=== PATIENT | female | born 1980 | race Two or more races ===

== ENCOUNTER 2024-07-01 10:11 | Emergency (ER) | payer MEDICARE, MEDICAID, SELFPAY ==
[2024-07-01] VITALS (17 sets, daily range): BP systolic 163–212; BP diastolic 71–94; PULSE 76–132; RESP 15–24; TEMP 36.4–37.2; O2SAT 94–99; BMI 32.4
--- NOTE | 2024-07-01 10:46 | PD.EDRME ---
Rapid Medical Screening Exam RME Arrival date/time: 07/01/24 10:11 44-year-old female known chronic renal failure on dialysis here for possible blood transfusion and anemia. I have greeted and performed a focused initial assessment of this patient. Initial appropriate labs ordered at this time. A comprehensive ED assessment and evaluation of the patient and analysis of all test and completion of medical decision making process will be conducted by additional ED provider. Chief Complaint: General Adult/Misc Complain Time Seen by Provider: 07/01/24 10:27 Vital signs: Vital Signs Temperature 98.2 F 07/01/24 10:25 Pulse Rate 88 07/01/24 10:25 Respiratory Rate 18 07/01/24 10:25 Blood Pressure 165/75 H 07/01/24 10:25 Pulse Oximetry (%) 98 07/01/24 10:25 Oxygen Delivery Method Room Air 07/01/24 10:25
[2024-07-01 11:04] LABS: Basophils % (Auto) 0 % (0-2.5); Eosinophils # (Auto) 0.1 Thou/mm3 (0.0-0.5); Eosinophils % (Auto) 3 % (0-10); Hematocrit 23.4 % (36.0-46.0); Immature Granulocytes % (Auto) 1 % (0-0); Immature Granulocytes Auto 0.04 Thou/mm3 (0.00-0.00); Lymphocytes # (Auto) 1.2 Thou/mm3 (1.0-4.8); Lymphocytes % (Auto) 27 % (10-50); Mean Corpuscular HGB Conc 31.2 g/dl (31.0-37.0); Mean Corpuscular Hemoglobin 29.1 pg (25.0-35.0); Mean Corpuscular Volume 93 fL (80-100); Monocytes # (Auto) 0.5 Thou/mm3 (0.0-0.8); Monocytes % (Auto) 11 % (0-12); Neutrophils # (Auto) 2.7 Thou/mm3 (1.8-7.7); Neutrophils % (Auto) 58 % (37-80); Nucleated Red Blood Cell % 0 /100 WBC (0); Platelet Count 120 Thou/mm3 (140-440); RDW Standard Deviation 47.8 fL (36.4-46.3); Red Blood Count 2.51 Miln/mm3 (4.00-5.20); White Blood Count 4.6 Thou/mm3 (3.6-11.0)
[2024-07-01 11:08] LABS: Hemoglobin 7.3 g/dL (12.0-16.0)
[2024-07-01 11:24] LABS: Alanine Aminotransferase 17 U/L (10-49); Albumin, Serum 4.1 gm/dL (3.5-5.0); Albumin/Globulin Ratio 1.5 (1.2-2.2); Alkaline Phosphatase 114 U/L (46-116); Anion Gap 8 (7-16); Aspartate Amino Transferase 16 U/L (0-34); BUN/Creatinine Ratio 6 Ratio (12-20); Bilirubin,Total 0.4 mg/dL (0.3-1.2); Blood Urea Nitrogen 33 mg/dL (9-23); Calcium 9.8 mg/dL (8.3-10.6); Calcium (Corrected) 9.8 mg/dL (8.5-10.1); Carbon Dioxide 29.9 mMol/L (20.0-31.0); Chloride 101 mMol/L (98-107); Creatinine (Component) 5.4 mg/dL (0.6-1.3); Estimated Creatinine Clearance 14.1 mL/min (>60); Globulin 2.8 gm/dL (2.3-3.5); Glucose 120 mg/dL (74-106); Osmolality,Calculated 285 (275-295); Sodium 139 mMol/L (136-145); Total Protein 6.9 gm/dL (5.7-8.2); eGFR 9 See Note
--- NOTE | 2024-07-01 13:55 | PD.EDADULT ---
ED General RME/HPI General Chief complaint: General Adult/Misc Complain Stated complaint: SENT FROM DIALYSIS FOR TANSFUSION Time Seen by Provider: 07/01/24 10:27 Arrival date/time: 07/01/24 10:11 RME / HPI RME / HPI narrative: 44-year-old female patient with significant history of hypertension diabetes mellitus, end-stage renal disease, on hemodialysis dialysis, MWF, last dialysis yesterday, was advised to come to the emergency room by dialysis center for blood transfusion. Patient is denying any complaints. No vomiting blood no blood in the stool or changes in color of the stool. She had blood transfusion in the past. Related Data Home Medications ?Medication ?Instructions ?Recorded ?Confirmed insulin glargine 100 unit/mL (3 20 unit subcut BID ##9 05/01/17 11/25/22 mL) subcutaneous pen (Basaglar KwikPen U-100 Insulin) nifedipine 60 mg tablet,extended 60 mg PO QDAY ##30 05/01/17 11/25/22 release (Nifedipine ER) simvastatin 20 mg tablet 20 mg PO QDAY ##30 05/01/17 02/26/24 calcium acetate(phosphat bind) 667 2 tab PO TID 07/23/17 11/25/22 mg capsule escitalopram oxalate 10 mg tablet 10 mg PO QDAY 07/23/17 11/25/22 carvedilol 25 mg tablet 25 mg PO BID 02/26/24 02/26/24 gabapentin 300 mg capsule 300 mg PO TID 02/26/24 02/26/24 losartan 100 mg tablet 100 mg PO QDAY 02/26/24 02/26/24 omeprazole 40 mg capsule,delayed 40 mg PO QDAY 02/26/24 02/26/24 release semaglutide 2 mg/dose (8 mg/3 mL) 2 mg subcut QWEEK 02/26/24 02/26/24 subcutaneous pen injector (Ozempic) Previous Rx's ?Medication ?Instructions ?Recorded hydralazine 25 mg tablet 25 mg PO TID #90 tabs 11/26/22 metoclopramide HCl 10 mg tablet 10 mg PO Q6H PRN nausea and 01/22/24 (Reglan) vomiting #30 tabs Allergies Allergy/AdvReac Type Severity Reaction Status Date / Time No Known Allergies Allergy Verified 07/01/24 10:13 Review of Systems Review of Systems Narrative Review of Systems: Review of system reviewed and within normal limits except mentioned in HPI ED Exam Narrative Physical exam: VITAL SIGNS: Reviewed. GENERAL APPEARANCE: Alert and interactive, follows commands, no acute distress, HEAD AND FACE: Non-traumatic. ENT: PERRL, pale conjunctiva eyelid no trauma, Mucous membrane moist. NECK: Supple, nontender, no nuchal rigidity. CHEST: No tenderness, no crepitus, no paradoxical movement, no retractions. LUNGS: Clear, well ventilated, symmetric, no rales, no wheezing, no ronchi, no stridor, good breath sounds bilaterally. HEART: Regular rate, regular rhythm, no murmur, no gallops. ABDOMEN: Soft, positive bowel sounds, nondistended, no guarding, nontender, no rebound, no masses, RECTAL: Deferred. GENITAL: Deferred. NEUROLOGICAL: Gross motor function intact sensory function intact, Appropriate for age. MUSCULOSKELETAL: low back nontender, full range of motion. EXTREMITIES: Nontender, full range of motion. SKIN: Color pale, dry, no rash, no lacerations, no abrasions, no contusions. LYMPHATICS: Deferred. Course Quality Measures none Orders Category Date Time Status Transfuse,blood/blood products ONCE Care 07/01/24 12:01 Completed CBC Stat Lab 07/01/24 10:50 Completed Comprehensive Metabolic Panel Stat Lab 07/01/24 10:50 Completed Type and Screen Stat Lab 07/01/24 10:50 Completed prbc [Red Blood Cells] Stat Lab 07/01/24 10:50 Completed ALBUTEROL RT 0.5ml [Proventil Rt 0.5ml] Med 07/01/24 21:47 Discontinued 5 mg INH X1 ONE Diphenoxylate/Atrop Sulf [Lomotil] Med 07/01/24 16:24 Discontinued 2 tab PO X1 ONE Sod Polystyrene Sulfon Susp [Kayexalate Susp] Med 07/01/24 21:46 Discontinued 30 gm PO X1 ONE Sodium Chloride Rt Kathi 0.9% [NS Rt Kathi 0.9%] Med 07/01/24 21:47 Discontinued 3 ml INH PRN PRN carVEDILOL [Coreg] Med 07/01/24 13:53 Discontinued 25 mg PO X1 ONE hydrALAZINE HCL [Apresoline] Med 07/01/24 13:53 Discontinued 100 mg PO X1 ONE Vital Signs Vital signs: Vital Signs Temperature 98.2 F 07/01/24 10:25 Pulse Rate 88 07/01/24 10:25 Respiratory Rate 18 07/01/24 10:25 Blood Pressure 165/75 H 07/01/24 10:25 Pulse Oximetry (%) 98 07/01/24 10:25 Oxygen Delivery Method Room Air 07/01/24 10:25 [facility] Patient data External records reviewed:: None Clinical information provided by:: none Social determinants that could affect healthcare access:: none Patient has the following chronic illnesses:: ESRD How is presenting disease/condition affected by chronic disease/condition?: exacerbated by Evaluation data The following diagnostics were reviewed and interpreted by me:: lab results and radiology exam(s) Lab and/or radiology exams considered but not ordered:: None none Interpretation Summary: Patient's hemoglobin was noted to be 7.3, patient's potassium was noted to be 6.0 the rest of the labs is significant for chronic kidney disease. Medications Medications considered but not ordered:: None Medication administrations:: Medication Administration History Discontinued Medications Albuterol (Albuterol Rt 2.5 Mg/0.5 Ml Nebu) 5 mg INH X1 ONE Stop: 07/01/24 21:48 Last Admin: 07/01/24 22:19 Dose: 5 mg Documented By: SC Carvedilol (Carvedilol 12.5 Mg Tablet) 25 mg PO X1 ONE Stop: 07/01/24 13:54 Last Admin: 07/01/24 15:06 Dose: 25 mg Documented By: AA Diphenoxylate HCl/Atropine (Diphenoxylate/Atrop Sulf 1 Tab) 2 tab PO X1 ONE Stop: 07/01/24 16:25 Last Admin: 07/01/24 16:36 Dose: 2 tab Documented By: AA Hydralazine HCl (Hydralazine Hcl 25 Mg Tablet) 100 mg PO X1 ONE Stop: 07/01/24 13:54 Last Admin: 07/01/24 14:05 Dose: 100 mg Documented By: AA Sodium Chloride (Sodium Chloride Rt Kathi 0.9% 3 Ml Nebu) 3 ml INH PRN PRN PRN Reason: SOLN Stop: 07/31/24 21:46 Last Admin: 07/01/24 22:19 Dose: 3 ml Documented By: SC Sodium Polystyrene Sulfonate (Sod Polystyrene Sulfon Susp 15 Gm/60 Ml Btl) 30 gm PO X1 ONE Stop: 07/01/24 21:47 Last Admin: 07/01/24 22:47 Dose: 30 gm Documented By: AC Albuterol breathing treatment for hyper-K Kayexalate Coreg Lomotil and hydralazine none Consultations Consultation(s) initiated? (list below): No Diagnosis Differential Diagnosis ED Complaint MDM: Anemia chronic disease, iron deficiency anemia, ESRD on hemodialysis Most likely diagnosis given after review of the tests above:: Anemia of chronic disease Admission Indicated Admission indicated?: not indicated Explain why admission is indicated or not indicated:: Stable Admission Request Was there a request for admission?: No Disposition Plan Disposition Plan: Discharge Discharge Attestation Discharge Attestation: The patient and all family members were given an opportunity to ask questions and understood the discharge instructions. Discharge instructions specifically effects, indications for sooner follow up or return to the emergency department, and the expected course of current diagnosis. Patient condition: Stable Medical Decision Making MDM Narrative MDM Narrative: 44-year-old female patient with significant history of hypertension diabetes mellitus, end-stage renal disease, on hemodialysis dialysis, MWF, last dialysis yesterday, was advised to come to the emergency room by dialysis center for blood transfusion. Patient is denying any complaints. No vomiting blood no blood in the stool or changes in color of the stool. She had blood transfusion in the past. Patient's hemoglobin today was noted to be 7.3, hematocrit of 23.4, the rest of the labs unremarkable. Except for chronic kidney disease potassium is 6.0 Patient received Kayexalate in the emergency room. Patient was also given albuterol for hyperkalemia. Repeat potassium is not needed since patient will have hemodialysis early tomorrow. Differential Diagnosis Differential Diagnosis: Anemia chronic disease, iron deficiency anemia, ESRD on hemodialysis Lab Data 07/01/24 10:50 07/01/24 10:50 Labs: Lab Results 07/01/24 Range/Units 10:50 WBC 4.6 (3.6-11.0) Thou/mm3 RBC 2.51 L (4.00-5.20) Miln/mm3 Hgb 7.3 L (12.0-16.0) g/dL Hct 23.4 L (36.0-46.0) % MCV 93 (80-100) fL MCH 29.1 (25.0-35.0) pg MCHC 31.2 (31.0-37.0) g/dl RDW Std Deviation 47.8 H (36.4-46.3) fL Plt Count 120 L (140-440) Thou/mm3 Neut % (Auto) 58 (37-80) % Lymph % (Auto) 27 (10-50) % [place] % (Auto) 11 (0-12) % Eos % (Auto) 3 (0-10) % Baso % (Auto) 0 (0-2.5) % Neut # (Auto) 2.7 (1.8-7.7) Thou/mm3 Lymph # (Auto) 1.2 (1.0-4.8) Thou/mm3 [place] # (Auto) 0.5 (0.0-0.8) Thou/mm3 Eos # (Auto) 0.1 (0.0-0.5) Thou/mm3 Baso # (Auto) 0.0 (0.0-0.2) Thou/mm3 Immature Gran # (Auto) 0.04 H (0.00-0.00) Thou/mm3 Absolute Nucleated RBC 0.00 (0.00-0.00) Thou/mm3 Immature Gran % 1 H (0-0) % Nucleated RBC % 0 (0) /100 WBC Sodium 139 (136-145) mMol/L Potassium 6.0 H (3.4-5.1) mMol/L Chloride 101 (98-107) mMol/L Carbon Dioxide 29.9 (20.0-31.0) mMol/L Anion Gap 8 (7-16) BUN 33 H (9-23) mg/dL Creatinine 5.4 H* (0.6-1.3) mg/dL Estim Creat Clear Calc 14.1 L (>60) mL/min eGFR 9 L* (60 - ) See Note BUN/Creatinine Ratio 6 L (12-20) Ratio Glucose 120 H (74-106) mg/dL Calculated Osmolality 285 (275-295) Calcium 9.8 (8.3-10.6) mg/dL Corrected Calcium 9.8 (8.5-10.1) mg/dL Total Bilirubin 0.4 (0.3-1.2) mg/dL AST 16 (0-34) U/L ALT 17 (10-49) U/L Alkaline Phosphatase 114 (46-116) U/L Total Protein 6.9 (5.7-8.2) gm/dL Albumin 4.1 (3.5-5.0) gm/dL Globulin 2.8 (2.3-3.5) gm/dL Albumin/Globulin Ratio 1.5 (1.2-2.2) Blood Type B Positive Antibody Screen NEGATIVE Crossmatch See Detail Blood Bank Wristband ID Yes Discharge Plan Plan Patient Disposition: HOME (Self Care) Disposition Comment: stable Prescriptions/Referrals Prescriptions/Med Rec: No Action simvastatin 20 MG tablet 20 mg PO QDAY Qty: 30 nifedipine [Nifedipine ER] 60 MG tablet extended release 60 mg PO QDAY Qty: 30 insulin glargine [Basaglar KwikPen U-100 Insulin] 100 unit/mL (3 mL) Insulin Pen 20 unit SUB-Q BID Qty: 9 escitalopram oxalate 10 mg Tablet 10 mg PO QDAY calcium acetate(phosphat bind) 667 mg Capsule 2 tab PO TID hydralazine 25 mg Tablet 25 mg PO TID Qty: 90 0RF omeprazole 40 mg Capsule,Delayed Release(Dr/Ec) 40 mg PO QDAY carvedilol 25 mg Tablet 25 mg PO BID Rx Instructions: must administer with a meal/food gabapentin 300 mg Capsule 300 mg PO TID losartan 100 mg Tablet 100 mg PO QDAY Ozempic 2 mg/dose (8 mg/3 mL) Pen Injector 2 mg SUBCUT QWEEK metoclopramide HCl [Reglan] 10 mg tablet 10 mg PO Q6H PRN (Reason: nausea and vomiting) Qty: 30 0RF Referrals: Luis Wilkerson MD [Primary Care Provider] - In 1 week Problem List Clinical Impression: Anemia, Encounter for hemodialysis for ESRD Patient/Caregiver Discharge Instructions Discharge Activity: activity as tolerated Education Materials: Anemia Additional Instructions: Thank you for the opportunity for serving you today. You are stable for discharged . You are advised to: Follow-up with your PCP in 1 to 2 days Return to ED for worsening of symptoms Your received 2 units of packed RBC today. Print Language: Maori Stand Alone Forms: Peyton Award Info., Patient Portal Info Letter PA/BEHAVIORAL HEALTH SPECIALIST Supervising Physician [facility]/JANELLE Supervising Physician: MD Hadley
[2024-07-01] MEDS: hydrALAZINE HCL 25 MG TABLET 100 MG PO (14:05)
[2024-07-01] MEDS: carVEDILOL 12.5 MG TABLET 25 MG PO (15:06)
[2024-07-01] MEDS: DIPHENOXYLATE/ATROP SULF 1 TAB 2 TAB PO (16:36)
--- NOTE | 2024-07-01 19:15 | PC.NURSE ---
First contact with pt in Room 7, pt in gown, connected to bedside director custom, call light within reach.
[2024-07-01] MEDS: ALBUTEROL RT 2.5 MG/0.5 ML NEBU 5 MG INH (22:19)
[2024-07-01] MEDS: SODIUM CHLORIDE RT SOL 0.9% 3 ML NEBU INH (22:19)
[2024-07-01] MEDS: SOD POLYSTYRENE SULFON SUSP 15 GM/60 ML BTL 30 GM PO (22:47)
== END 2024-07-01 23:02 | disposition home or self-care (01) ==
PROVIDERS: Nurse Practitioner Primary Care; Emergency Provider Emergency Medicine; PCP Family Medicine
DX: I12.0 Hypertensive chronic kidney disease with stage 5 chronic kidney disease or end stage renal disease (principal); E11.22 Type 2 diabetes mellitus with diabetic chronic kidney disease; N18.6 End stage renal disease; D63.1 Anemia in chronic kidney disease; Z99.2 Dependence on renal dialysis; Z79.4 Long term (current) use of insulin; Z79.85 Long-term (current) use of injectable non-insulin antidiabetic drugs
CPT/HCPCS: 36415; 36430; 80053; 81001; 81025; 85025; 86850; 86900; 86901; 86923; 94640; 99285; P9016; A9270

== ENCOUNTER 2024-07-10 11:06 | Emergency (ER) | payer MEDICARE, MEDICAID, SELFPAY ==
[2024-07-10 11:07] VITALS: BMI 31.9
[2024-07-10 11:50] VITALS: BP 186/82; PULSE 81; RESP 18; TEMP 37.1; O2SAT 97; BMI 34.4
--- NOTE | 2024-07-10 11:57 | XR_ITS ---
Examination: PA chest single view Technique: Upright PA chest single view Exam date and time: July 10, 2024 1221 hrs. Comparison January 22, 2024 Indications: Chest pain shortness of breath beginning 3 days ago. Findings: Mild prominence cardiac contour Mild vascular congestion Early pneumonia left base obscuring detail left hemidiaphragm Mild osteopenia Impression: Early left base pneumonia
--- NOTE | 2024-07-10 11:59 | PD.EDURI ---
Upper Respiratory Inf. RME/HPI General Chief Complaint: Flu Like Symptoms Stated Complaint: COUGH, SORE THROAT, DIFF SWALLOWING, CONGESTION Time Seen by Provider: 07/10/24 11:37 Arrival date/time: 07/10/24 11:06 RME / HPI RME / HPI Narrative: 44-year-old female patient with significant history of hypertension, end-stage renal disease, diabetes mellitus, came in for evaluation regarding cough. Patient's been having worsening cough, sore throat, dysphagia, congestion, for the last few days. Patient missed her dialysis yesterday. Last hemodialysis was . Patient denies any fever denies any chest pain denies any abdominal pain denies any vomiting. No medication was taken prior travel. Denies any ill contacts. Related Data Home Medications ?Medication ?Instructions ?Recorded ?Confirmed insulin glargine 100 unit/mL (3 20 unit subcut BID ##9 05/01/17 11/25/22 mL) subcutaneous pen (Tk20aglar KwikPen U-100 Insulin) nifedipine 60 mg tablet,extended 60 mg PO QDAY ##30 05/01/17 11/25/22 release (Nifedipine ER) simvastatin 20 mg tablet 20 mg PO QDAY ##30 05/01/17 02/26/24 calcium acetate(phosphat bind) 667 2 tab PO TID 07/23/17 11/25/22 mg capsule escitalopram oxalate 10 mg tablet 10 mg PO QDAY 07/23/17 11/25/22 carvedilol 25 mg tablet 25 mg PO BID 02/26/24 02/26/24 gabapentin 300 mg capsule 300 mg PO TID 02/26/24 02/26/24 losartan 100 mg tablet 100 mg PO QDAY 02/26/24 02/26/24 omeprazole 40 mg capsule,delayed 40 mg PO QDAY 02/26/24 02/26/24 release semaglutide 2 mg/dose (8 mg/3 mL) 2 mg subcut QWEEK 02/26/24 02/26/24 subcutaneous pen injector (Ozempic) Previous Rx's ?Medication ?Instructions ?Recorded hydralazine 25 mg tablet 25 mg PO TID #90 tabs 11/26/22 metoclopramide HCl 10 mg tablet 10 mg PO Q6H PRN nausea and 01/22/24 (Reglan) vomiting #30 tabs amoxicillin 875 mg-potassium 1 tab PO BID #10 tabs 07/10/24 clavulanate 125 mg tablet azithromycin 250 mg tablet 250 mg PO QDAY 4 days #4 tabs 07/10/24 (Zithromax) promethazine-DM 6.25 mg-15 mg/5 mL 5 ml PO Q6H PRN cough #118 mL 07/10/24 oral syrup Allergies Allergy/AdvReac Type Severity Reaction Status Date / Time No Known Allergies Allergy Verified 07/10/24 11:09 Review of Systems Review of Systems Narrative Review of Systems: Review of system reviewed and within normal limits except mentioned in HPI ED Exam Narrative Physical exam: VITAL SIGNS: Reviewed. GENERAL APPEARANCE: Alert and interactive, follows commands, no acute distress, HEAD AND FACE: Non-traumatic. ENT: PERRL, pale conjunctiva, eyelid no trauma, Mucous membrane moist. NECK: Supple, nontender, no nuchal rigidity. CHEST: No tenderness, no crepitus, no paradoxical movement, no retractions. LUNGS: Clear, well ventilated, symmetric, no rales, no wheezing, no ronchi, no stridor, good breath sounds bilaterally. HEART: Regular rate, regular rhythm, no murmur, no gallops. ABDOMEN: Soft, positive bowel sounds, nondistended, no guarding, nontender, no rebound, no masses, RECTAL: Deferred. GENITAL: Deferred. NEUROLOGICAL: Gross motor function intact sensory function intact, Appropriate for age. MUSCULOSKELETAL: low back nontender, full range of motion. EXTREMITIES: Nontender, full range of motion. SKIN: Color pale, dry, no rash, no lacerations, no abrasions, no contusions. LYMPHATICS: Deferred. Course Quality Measures none Orders Category Date Time Status Bedside COVID-19 Antigen Test NOW Care 07/10/24 11:57 Active Bedside Influenza A&B Antigen Test NOW Care 07/10/24 11:58 Active XR chest 1V Stat Exams 07/10/24 11:57 Completed CBC [CBC] Stat Lab 07/10/24 12:37 Completed CMP [Comprehensive Metabolic Panel] Stat Lab 07/10/24 12:37 Completed RSV [Respiratory Syncytial Virus Ag] Stat Lab 07/10/24 11:58 Ordered Strep A Rapid Stat Lab 07/10/24 11:58 Ordered Amoxicillin/Pot Clav 875 [Augmentin 875] Med 07/10/24 16:28 Discontinued 1 tab PO X1 ONE Azithromycin Po [Zithromax PO] Med 07/10/24 16:32 Discontinued 500 mg PO X1 ONE Vital Signs Vital signs: Vital Signs Temperature 98.8 F 07/10/24 11:50 Pulse Rate 81 07/10/24 11:50 Respiratory Rate 18 07/10/24 11:50 Blood Pressure 186/82 H 07/10/24 11:50 Pulse Oximetry (%) 97 07/10/24 11:50 Oxygen Delivery Method Room Air 07/10/24 11:50 Upper Respiratory Infection [facility] Narrative [facility] Narrative:: 44-year-old female patient with significant history of hypertension, end-stage renal disease, diabetes mellitus, came in for evaluation regarding cough. Patient's been having worsening cough, sore throat, dysphagia, congestion, for the last few days. Patient missed her dialysis yesterday. Last hemodialysis was . Patient denies any fever denies any chest pain denies any abdominal pain denies any vomiting. No medication was taken prior travel. Denies any ill contacts. Chest x-ray showed beginning pneumonia otherwise unremarkable. The rest of the labs unremarkable. Except for chronic kidney disease, potassium today is normal Patient data External records reviewed:: [facility] previous records Clinical information provided by:: patient Social determinants that could affect healthcare access:: none Patient has the following chronic illnesses:: ESRD, on hemodialysis, diabetes mellitus hypertension How is presenting disease/condition affected by chronic disease/condition?: exacerbated by Evaluation data The following diagnostics were reviewed and interpreted by me:: lab results, radiology exam(s) and EKG tracing(s) Lab and/or radiology exams considered but not ordered:: None Interpretation Summary: See results in [facility] Medications / Prescriptions Medications or Prescriptions considered but not ordered:: None Medication administrations:: Medication Administration History Discontinued Medications Amoxicillin/Clavulanate Potassium (Amoxicillin/Pot Clav 875 Tablet) 1 tab PO X1 ONE Stop: 07/10/24 16:29 Azithromycin (Azithromycin 250 Mg Tablet) 500 mg PO X1 ONE Stop: 07/10/24 16:33 Zithromax, Augmentin Consultations Consultation(s) initiated? (list below): No Diagnosis Upper Respiratory Differential Diagnosis: upper respiratory infection, viral infection and other (Pneumonia) Most likely diagnosis given after review of the tests above:: Pneumonia Admission Indicated Admission indicated?: not indicated Explain why admission is indicated or not indicated:: None Admission Request Was there a request for admission?: No Disposition Plan Disposition Plan: Discharge Discharge Attestation Discharge Attestation: The patient was given an opportunity to ask questions and understood the discharge instructions. Discharge instructions specifically effects, indications for sooner follow up or return to the emergency department, and the expected course of current diagnosis. Patient condition: Stable Discharge Plan Plan Patient Disposition: HOME (Self Care) Disposition Comment: stable Prescriptions/Referrals Prescriptions/Med Rec: New azithromycin [Zithromax] 250 mg tablet 250 mg PO QDAY 4 Days Qty: 4 0RF Rx Instructions: start on day 2 of therapy amoxicillin-pot clavulanate 875-125 mg tablet 1 tab PO BID Qty: 10 0RF promethazine-DM 6.25-15 mg/5 mL syrup 5 ml PO Q6H PRN (Reason: cough) Qty: 118 0RF No Action simvastatin 20 MG tablet 20 mg PO QDAY Qty: 30 nifedipine [Nifedipine ER] 60 MG tablet extended release 60 mg PO QDAY Qty: 30 insulin glargine [Basaglar KwikPen U-100 Insulin] 100 unit/mL (3 mL) Insulin Pen 20 unit SUB-Q BID Qty: 9 escitalopram oxalate 10 mg Tablet 10 mg PO QDAY calcium acetate(phosphat bind) 667 mg Capsule 2 tab PO TID hydralazine 25 mg Tablet 25 mg PO TID Qty: 90 0RF omeprazole 40 mg Capsule,Delayed Release(Dr/Ec) 40 mg PO QDAY carvedilol 25 mg Tablet 25 mg PO BID Rx Instructions: must administer with a meal/food gabapentin 300 mg Capsule 300 mg PO TID losartan 100 mg Tablet 100 mg PO QDAY Ozempic 2 mg/dose (8 mg/3 mL) Pen Injector 2 mg SUBCUT QWEEK metoclopramide HCl [Reglan] 10 mg tablet 10 mg PO Q6H PRN (Reason: nausea and vomiting) Qty: 30 0RF Referrals: Luis Wilkerson MD [Primary Care Provider] - In 1 week Problem List Clinical Impression: Pneumonia Patient/Caregiver Discharge Instructions Discharge Activity: activity as tolerated Education Materials: What Is Pneumonia? Additional Instructions: Thank you for the opportunity for serving you today. You are stable for discharged . You are advised to: Follow-up with your PCP in 1 to 2 days Return to ED for worsening of symptoms Take medication as prescribed Print Language: Greenlandic Stand Alone Forms: Peyton Award Info., Patient Portal Info Letter PA/SECOND WATCH SERGEANT Supervising Physician [facility]ELLE Supervising Physician: MD Bernardino
[2024-07-10 12:55] LABS: Basophils % (Auto) 1 % (0-2.5); Eosinophils # (Auto) 0.1 Thou/mm3 (0.0-0.5); Eosinophils % (Auto) 3 % (0-10); Hematocrit 24.3 % (36.0-46.0); Immature Granulocytes % (Auto) 1 % (0-0); Immature Granulocytes Auto 0.04 Thou/mm3 (0.00-0.00); Lymphocytes # (Auto) 0.7 Thou/mm3 (1.0-4.8); Lymphocytes % (Auto) 17 % (10-50); Mean Corpuscular HGB Conc 33.3 g/dl (31.0-37.0); Mean Corpuscular Hemoglobin 28.9 pg (25.0-35.0); Mean Corpuscular Volume 87 fL (80-100); Monocytes # (Auto) 0.5 Thou/mm3 (0.0-0.8); Monocytes % (Auto) 14 % (0-12); Neutrophils # (Auto) 2.4 Thou/mm3 (1.8-7.7); Neutrophils % (Auto) 64 % (37-80); Nucleated Red Blood Cell % 0 /100 WBC (0); Platelet Count 114 Thou/mm3 (140-440); RDW Standard Deviation 62.7 fL (36.4-46.3); White Blood Count 3.8 Thou/mm3 (3.6-11.0)
[2024-07-10 13:23] LABS: Alanine Aminotransferase 21 U/L (10-49); Albumin, Serum 4.3 gm/dL (3.5-5.0); Albumin/Globulin Ratio 1.5 (1.2-2.2); Alkaline Phosphatase 92 U/L (46-116); Anion Gap 15 (7-16); Aspartate Amino Transferase 22 U/L (0-34); BUN/Creatinine Ratio 6 Ratio (12-20); Bilirubin,Total 0.3 mg/dL (0.3-1.2); Blood Urea Nitrogen 48 mg/dL (9-23); Calcium 8.2 mg/dL (8.3-10.6); Calcium (Corrected) 8.2 mg/dL (8.5-10.1); Carbon Dioxide 24.1 mMol/L (20.0-31.0); Chloride 97 mMol/L (98-107); Creatinine (Component) 7.7 mg/dL (0.6-1.3); Estimated Creatinine Clearance 11.3 mL/min (>60); Globulin 2.8 gm/dL (2.3-3.5); Glucose 79 mg/dL (74-106); Osmolality,Calculated 283 (275-295); Potassium 4.8 mMol/L (3.4-5.1); Sodium 136 mMol/L (136-145); Total Protein 7.1 gm/dL (5.7-8.2); eGFR 6 See Note
[2024-07-10 14:10] LABS: Hemoglobin 8.1 g/dL (12.0-16.0)
[2024-07-10 16:30] VITALS: BP 194/85; PULSE 84; RESP 18; TEMP 37.2; O2SAT 96
[2024-07-10] MEDS: AMOXICILLIN/POT CLAV 875 TABLET 1 TAB PO (16:48)
[2024-07-10] MEDS: AZITHROMYCIN 250 MG TABLET 500 MG PO (16:48)
== END 2024-07-10 17:00 | disposition home or self-care (01) ==
PROVIDERS: Nurse Practitioner Family; Emergency Provider Emergency Medicine; PCP Family Medicine
DX: J18.9 Pneumonia, unspecified organism (principal); I12.0 Hypertensive chronic kidney disease with stage 5 chronic kidney disease or end stage renal disease; N18.6 End stage renal disease; E11.22 Type 2 diabetes mellitus with diabetic chronic kidney disease; Z91.158 Patient's noncompliance with renal dialysis for other reason
CPT/HCPCS: 36415; 71045; 80053; 85025; 87634; 87651; 99283; A9270

== ENCOUNTER → 2024-08-10 | Outpatient (CLI) | payer MEDICARE, MEDICAID, SELFPAY ==
--- NOTE | 2024-08-10 10:30 | XR_ITS ---
Examination: Pelvic ultrasound, transabdominal, complete Technique: Transabdominal ultrasound of the pelvis performed using grayscale imaging Date and time of exam: August 10, 2024 1021 hrs. Indications: Diagnosis benign inflammatory disorder of uterus several months Findings: Uterus 5.1 x 2.9 x 5.9 cm No uterine mass Endometrial stripe 0.7 cm Right ovary 5.2 cm arterial flow 3.2 x 2.7 cm cyst Left ovarian cyst 3.6 cm arterial flow Impression: Negative for uterine mass Right ovarian simple cyst 3.2 x 2.3 x 3.7 cm.
== END | disposition home or self-care (01) ==
LOC: CDIM 10:01
PROVIDERS: PCP Internal Medicine; Referring Provider Internal Medicine; Visit Provider Internal Medicine
DX: N83.291 Other ovarian cyst, right side (principal)
CPT/HCPCS: 76856

== ENCOUNTER 2024-11-05 13:51 | Emergency (ER) | payer MEDICARE, MEDICAID, SELFPAY ==
[2024-11-05 13:52] VITALS: BMI 32.5
--- NOTE | 2024-11-05 13:56 | EKG_ITS ---
[facility] Test Date: 2024-11-05 Pat Name: MICKY WONG Department: Room: - Gender: Female Statistical Typist: : 1980 Requested By: ED Temporary Provider Order Number: [id number] Reading MD: ED Temporary Provider Measurements Intervals [place] Rate: 86 P: 22 NM: 257 QRS: 25 QRSD: 110 T: 75 QT: 432 QTc: 517 Interpretive Statements SINUS RHYTHM WITH FIRST DEGREE AV BLOCK MINIMAL ST DEPRESSION [0.025+ mV ST DEPRESSION] PROLONGED QT INTERVAL Compared to ECG 01/22/2024 10:38:11 ST (T wave) deviation now present Prolonged QT interval now present Ectopic atrial rhythm no longer present Myocardial infarct finding no longer present /store/S0/[id number]/ecg/[id number].pdf
[2024-11-05 14:04] VITALS: BP 132/70; PULSE 90; RESP 18; TEMP 37.2; O2SAT 99
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
== END 2024-11-05 16:02 | disposition home or self-care (01) ==
PROVIDERS: Emergency Provider Family Medicine
DX: S20.219A Contusion of unspecified front wall of thorax, initial encounter (principal); V89.9XXA Person injured in unspecified vehicle accident, initial encounter; I44.0 Atrioventricular block, first degree; I45.81 Long QT syndrome
CPT/HCPCS: 71046; 93005; 99283

== ENCOUNTER 2024-11-18 12:25 | Emergency (ER) | payer MEDICARE, MEDICAID, SELFPAY ==
[2024-11-18] VITALS (12 sets, daily range): BP systolic 132–208; BP diastolic 70–92; PULSE 76–84; RESP 16–18; TEMP 36.6–37.4; O2SAT 94–100; BMI 31.7
--- NOTE | 2024-11-18 13:02 | PD.EDRME ---
Rapid Medical Screening Exam RME Arrival date/time: 11/18/24 12:25 44-year-old female with a history of hypertension, type 2 diabetes on dialysis Wednesdays presents to the emergency room with a chief complaint of a low hemoglobin. Patient was sent over by dialysis center for hemoglobin of 6.2. I have greeted and performed a focused initial assessment of this patient. A comprehensive ED assessment and evaluation of the patient, analysis of all test results, and completion of the medical decision making process will be conducted by additional ED providers. Chief Complaint: General Adult/Misc Complain Time Seen by Provider: 11/18/24 12:42 Vital signs: Vital Signs Temperature 99.4 F 11/18/24 12:32 Pulse Rate 83 11/18/24 12:32 Respiratory Rate 16 11/18/24 12:32 Blood Pressure 133/74 H 11/18/24 12:32 Pulse Oximetry (%) 100 11/18/24 12:32 Oxygen Delivery Method Room Air 11/18/24 12:32 Vital signs reviewed by provider: Yes
[2024-11-18 13:40] LABS: Basophils # (Auto) 0.1 Thou/mm3 (0.0-0.2); Basophils % (Auto) 1 % (0-2.5); Eosinophils # (Auto) 0.2 Thou/mm3 (0.0-0.5); Eosinophils % (Auto) 4 % (0-10); Hematocrit 22.4 % (36.0-46.0); Immature Granulocytes % (Auto) 1 % (0-0); Immature Granulocytes Auto 0.04 Thou/mm3 (0.00-0.00); Lymphocytes # (Auto) 1.2 Thou/mm3 (1.0-4.8); Lymphocytes % (Auto) 29 % (10-50); Mean Corpuscular HGB Conc 33.5 g/dl (31.0-37.0); Mean Corpuscular Hemoglobin 30.1 pg (25.0-35.0); Mean Corpuscular Volume 90 fL (80-100); Monocytes # (Auto) 0.5 Thou/mm3 (0.0-0.8); Monocytes % (Auto) 11 % (0-12); Neutrophils # (Auto) 2.3 Thou/mm3 (1.8-7.7); Neutrophils % (Auto) 54 % (37-80); Nucleated Red Blood Cell % 0 /100 WBC (0); Platelet Count 128 Thou/mm3 (140-440); RDW Standard Deviation 47.1 fL (36.4-46.3); Red Blood Count 2.49 Miln/mm3 (4.00-5.20); White Blood Count 4.3 Thou/mm3 (3.6-11.0)
[2024-11-18 13:46] LABS: Partial Thromboplastin Time 25.5 Seconds (22.0-36.0); Prothrombin Time 11.4 Seconds (9.0-12.2)
[2024-11-18 13:53] LABS: Hemoglobin 7.5 g/dL (12.0-16.0)
[2024-11-18 14:00] LABS: Alanine Aminotransferase 9 U/L (10-49); Albumin/Globulin Ratio 1.6 (1.2-2.2); Alkaline Phosphatase 101 U/L (46-116); Anion Gap 17 (7-16); Aspartate Amino Transferase 18 U/L (0-34); BUN/Creatinine Ratio 4 Ratio (12-20); Bilirubin,Total 0.4 mg/dL (0.3-1.2); Blood Urea Nitrogen 33 mg/dL (9-23); Calcium 8.3 mg/dL (8.3-10.6); Calcium (Corrected) 8.3 mg/dL (8.5-10.1); Carbon Dioxide 27.5 mMol/L (20.0-31.0); Chloride 99 mMol/L (98-107); Creatinine (Component) 8.2 mg/dL (0.6-1.3); Estimated Creatinine Clearance 9.2 mL/min (>60); Globulin 2.5 gm/dL (2.3-3.5); Glucose 159 mg/dL (74-106); Osmolality,Calculated 295 (275-295); Potassium 4.2 mMol/L (3.4-5.1); Sodium 143 mMol/L (136-145); Total Protein 6.5 gm/dL (5.7-8.2); eGFR 6 See Note
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
--- NOTE | 2024-11-18 17:02 | EKG_ITS ---
[facility] Test Date: 2024-11-18 Pat Name: MICKY WONG Department: Room: - Gender: Female Switchman: : 1980 Requested By: Nishi Almeida Order Number: [id number] Reading MD: Nishi Almeida Measurements Intervals [place] Rate: 79 P: 44 RI: 244 QRS: 27 QRSD: 104 T: 76 QT: 434 QTc: 498 Interpretive Statements SINUS RHYTHM WITH FIRST DEGREE AV BLOCK Compared to ECG 11/05/2024 14:01:03 ST (T wave) deviation no longer present Prolonged QT interval no longer present /store/S0/[id number].pdf
[2024-11-18 17:52] LABS: Basophils # (Auto) 0.1 Thou/mm3 (0.0-0.2); Basophils % (Auto) 1 % (0-2.5); Eosinophils # (Auto) 0.2 Thou/mm3 (0.0-0.5); Eosinophils % (Auto) 3 % (0-10); Hematocrit 21.1 % (36.0-46.0); Immature Granulocytes % (Auto) 1 % (0-0); Immature Granulocytes Auto 0.03 Thou/mm3 (0.00-0.00); Lymphocytes # (Auto) 1.7 Thou/mm3 (1.0-4.8); Lymphocytes % (Auto) 35 % (10-50); Mean Corpuscular HGB Conc 34.1 g/dl (31.0-37.0); Mean Corpuscular Hemoglobin 30.4 pg (25.0-35.0); Mean Corpuscular Volume 89 fL (80-100); Monocytes # (Auto) 0.5 Thou/mm3 (0.0-0.8); Monocytes % (Auto) 11 % (0-12); Neutrophils # (Auto) 2.4 Thou/mm3 (1.8-7.7); Neutrophils % (Auto) 49 % (37-80); Nucleated Red Blood Cell % 0 /100 WBC (0); Platelet Count 128 Thou/mm3 (140-440); RDW Standard Deviation 46.4 fL (36.4-46.3); Red Blood Count 2.37 Miln/mm3 (4.00-5.20); White Blood Count 4.8 Thou/mm3 (3.6-11.0)
[2024-11-18] MEDS: ACETAMINOPHEN 325 MG TABLET 650 MG PO (17:53)
[2024-11-18] MEDS: DiphenhydrAMINE 25 MG CAPSULE PO (17:54)
[2024-11-18 18:01] LABS: Hemoglobin 7.2 g/dL (12.0-16.0)
[2024-11-18] MEDS: FUROSEMIDE INJ 10 MG/ML VIAL 2 ML 40 MG IVP (18:09)
[2024-11-18] MEDS: LOPERAMIDE 2 MG CAPSULE 4 MG PO (22:33)
[2024-11-18] MEDS: hydrALAZINE HCL 25 MG TABLET 100 MG PO (22:33)
[2024-11-18] MEDS: carVEDILOL 12.5 MG TABLET 25 MG PO (22:45)
[2024-11-18 23:27] LABS: Basophils # (Auto) 0.1 Thou/mm3 (0.0-0.2); Basophils % (Auto) 1 % (0-2.5); Eosinophils # (Auto) 0.2 Thou/mm3 (0.0-0.5); Eosinophils % (Auto) 3 % (0-10); Hematocrit 23.9 % (36.0-46.0); Immature Granulocytes % (Auto) 1 % (0-0); Immature Granulocytes Auto 0.03 Thou/mm3 (0.00-0.00); Lymphocytes # (Auto) 1.9 Thou/mm3 (1.0-4.8); Lymphocytes % (Auto) 37 % (10-50); Mean Corpuscular HGB Conc 33.9 g/dl (31.0-37.0); Mean Corpuscular Hemoglobin 29.9 pg (25.0-35.0); Mean Corpuscular Volume 88 fL (80-100); Monocytes # (Auto) 0.7 Thou/mm3 (0.0-0.8); Monocytes % (Auto) 13 % (0-12); Neutrophils # (Auto) 2.3 Thou/mm3 (1.8-7.7); Neutrophils % (Auto) 45 % (37-80); Nucleated Red Blood Cell # 0.02 Thou/mm3 (0.00-0.00); Nucleated Red Blood Cell % 0 /100 WBC (0); Platelet Count 116 Thou/mm3 (140-440); RDW Standard Deviation 48.1 fL (36.4-46.3); Red Blood Count 2.71 Miln/mm3 (4.00-5.20); White Blood Count 5.1 Thou/mm3 (3.6-11.0)
[2024-11-18 23:33] LABS: Hemoglobin 8.1 g/dL (12.0-16.0)
[2024-11-19 00:04] VITALS: BP 155/81; PULSE 76; RESP 16; O2SAT 100
[2024-11-19 00:47] VITALS: BP 155/81; PULSE 75; RESP 16; TEMP 36.8; O2SAT 97
== END 2024-11-19 00:50 | disposition home or self-care (01) ==
PROVIDERS: Nurse Practitioner Family; Physician Assistant; Emergency Provider Emergency Medicine; PCP Family Medicine
DX: I12.0 Hypertensive chronic kidney disease with stage 5 chronic kidney disease or end stage renal disease (principal); N18.6 End stage renal disease; E11.22 Type 2 diabetes mellitus with diabetic chronic kidney disease; D63.1 Anemia in chronic kidney disease; Z99.2 Dependence on renal dialysis
CPT/HCPCS: 36415; 36430; 80053; 85025; 85610; 85730; 86850; 86900; 86901; 86923; 93005; 96374; 99285; J1938; P9016; A9270

== ENCOUNTER 2025-04-04 14:10 | Emergency (ER) | payer MEDICARE, MEDICAID, SELFPAY ==
[2025-04-04 15:01] VITALS: BP 123/75; PULSE 71; RESP 18; TEMP 36.6; O2SAT 97
--- NOTE | 2025-04-04 15:14 | PD.EDRME ---
Rapid Medical Screening Exam RME Arrival date/time: 04/04/25 14:10 This is a case of 44-year-old female with history of ESRD on dialysis came in in the emergency room due to generalized tingling and and body pain after dialysis persistence of the symptoms this patient decided to start consulted in the emergency room Chief Complaint: General Adult/Misc Complain Time Seen by Provider: 04/04/25 14:22 Vital signs: Vital Signs Temperature 97.8 F 04/04/25 15:01 Pulse Rate 71 04/04/25 15:01 Respiratory Rate 18 04/04/25 15:01 Blood Pressure 123/75 04/04/25 15:01 Pulse Oximetry (%) 97 04/04/25 15:01 Oxygen Delivery Method Room Air 04/04/25 15:01
[2025-04-04 15:40] LABS: Basophils # (Auto) 0.1 Thou/mm3 (0.0-0.2); Basophils % (Auto) 1 % (0-2.5); Eosinophils # (Auto) 0.2 Thou/mm3 (0.0-0.5); Eosinophils % (Auto) 4 % (0-10); Hematocrit 34.4 % (36.0-46.0); Hemoglobin 11.5 g/dL (12.0-16.0); Immature Granulocytes Auto 0.02 Thou/mm3 (0.00-0.00); Lymphocytes # (Auto) 1.1 Thou/mm3 (1.0-4.8); Lymphocytes % (Auto) 24 % (10-50); Mean Corpuscular HGB Conc 33.4 g/dl (31.0-37.0); Mean Corpuscular Hemoglobin 31.4 pg (25.0-35.0); Mean Corpuscular Volume 94 fL (80-100); Monocytes # (Auto) 0.4 Thou/mm3 (0.0-0.8); Monocytes % (Auto) 10 % (0-12); Neutrophils # (Auto) 2.8 Thou/mm3 (1.8-7.7); Neutrophils % (Auto) 61 % (37-80); Nucleated Red Blood Cell # 0.00 Thou/mm3 (0.00-0.00); Nucleated Red Blood Cell % 0 /100 WBC (0); Platelet Count 108 Thou/mm3 (140-440); RDW Standard Deviation 49.6 fL (36.4-46.3); Red Blood Count 3.66 Miln/mm3 (4.00-5.20); White Blood Count 4.5 Thou/mm3 (3.6-11.0)
[2025-04-04 15:56] LABS: Alanine Aminotransferase 17 U/L (10-49); Albumin, Serum 4.1 gm/dL (3.5-5.0); Albumin/Globulin Ratio 1.6 (1.2-2.2); Alkaline Phosphatase 115 U/L (46-116); Anion Gap 13 (7-16); Aspartate Amino Transferase 22 U/L (0-34); BUN/Creatinine Ratio 4 Ratio (12-20); Bilirubin,Total 0.5 mg/dL (0.3-1.2); Blood Urea Nitrogen 27 mg/dL (9-23); Calcium 8.5 mg/dL (8.3-10.6); Calcium (Corrected) 8.5 mg/dL (8.5-10.1); Carbon Dioxide 31.1 mMol/L (20.0-31.0); Chloride 94 mMol/L (98-107); Creatinine (Component) 6.4 mg/dL (0.6-1.3); Globulin 2.5 gm/dL (2.3-3.5); Glucose 203 mg/dL (74-106); Magnesium 2.0 mg/dL (1.6-2.6); Osmolality,Calculated 286 (275-295); Potassium 3.7 mMol/L (3.4-5.1); Sodium 138 mMol/L (136-145); Total Protein 6.6 gm/dL (5.7-8.2); eGFR 8 See Note
--- NOTE | 2025-04-04 19:40 | PD.EDANX ---
ED Anxiety RME/HPI General Chief Complaint: General Adult/Misc Complain Stated Complaint: RESTLESSNESS S/P DIALYSIS Time Seen by Provider: 04/04/25 14:22 Arrival date/time: 04/04/25 14:10 RME / HPI RME / HPI narrative: 04/04/25 14:10 This is a case of 44-year-old female with history of ESRD on dialysis came in in the emergency room due to generalized tingling and and body pain after dialysis persistence of the symptoms this patient decided to start consulted in the emergency room See [facility] for Dr. Capps's HPI Documentation. Related Data Home Medications ?Medication ?Instructions ?Recorded ?Confirmed insulin glargine 100 unit/mL (3 20 unit subcut BID ##9 05/01/17 11/25/22 mL) subcutaneous pen (Basaglar KwikPen U-100 Insulin) nifedipine 60 mg tablet,extended 60 mg PO QDAY ##30 05/01/17 11/25/22 release (Nifedipine ER) simvastatin 20 mg tablet 20 mg PO QDAY ##30 05/01/17 02/26/24 calcium acetate(phosphat bind) 667 2 tab PO TID 07/23/17 11/25/22 mg capsule escitalopram oxalate 10 mg tablet 10 mg PO QDAY 07/23/17 11/25/22 carvedilol 25 mg tablet 25 mg PO BID 02/26/24 02/26/24 gabapentin 300 mg capsule 300 mg PO TID 02/26/24 02/26/24 losartan 100 mg tablet 100 mg PO QDAY 02/26/24 02/26/24 omeprazole 40 mg capsule,delayed 40 mg PO QDAY 02/26/24 02/26/24 release semaglutide 2 mg/dose (8 mg/3 mL) 2 mg subcut QWEEK 02/26/24 02/26/24 subcutaneous pen injector (Ozempic) Previous Rx's ?Medication ?Instructions ?Recorded hydralazine 25 mg tablet 25 mg PO TID #90 tabs 11/26/22 metoclopramide HCl 10 mg tablet 10 mg PO Q6H PRN nausea and 01/22/24 (Reglan) vomiting #30 tabs amoxicillin 875 mg-potassium 1 tab PO BID #10 tabs 07/10/24 clavulanate 125 mg tablet promethazine-DM 6.25 mg-15 mg/5 mL 5 ml PO Q6H PRN cough #118 mL 07/10/24 oral syrup alprazolam 0.5 mg tablet (Xanax) 0.5 mg PO BID PRN anxiety #20 tabs 04/04/25 Allergies Allergy/AdvReac Type Severity Reaction Status Date / Time No Known Allergies Allergy Verified 04/04/25 14:13 Review of Systems Review of Systems Systems Reviewed: All systems reviewed, normal except as documented Past Medical History Past Medical History CARDIAC: Positive Cardiac Disorders, Hypercholesterolemia and Hypertension GASTROINTESTINAL: Positive Obesity GENITOURINARY: Positive Genitourinary Disorders, Renal Disease and Dialysis REPRODUCTIVE: Positive Previous Pregnancies ENT: Positive Cataracts, Blind and Retinal Detachment ENDOCRINE: Positive Endocrine Disorders and Diabetes Mellitus Type 2 HEMATOLOGIC: Positive Blood Disorders and Anemia PSYCHO/SOCIAL: Positive Depression OTHER HISTORY: Positive Hospitalization, Blood Transfusions, Blood Transfusion Reaction and Chicken Pox Family History FAMILY HISTORY: Positive Family Cardiac Disorders, Family Cancer and Family Surgery Surgical History SURGICAL: Positive Eye Surgery and Abdominal Surgery Social History SMOKING STATUS: Former smoker ED Exam Narrative Physical exam: See [facility] for Dr. Capps's Physical Exam Documentation. Course Quality Measures none Orders Category Date Time Status CBC Stat Lab 04/04/25 15:28 Completed Comprehensive Metabolic Panel Stat Lab 04/04/25 15:28 Completed Magnesium Stat Lab 04/04/25 15:28 Completed ALPRazoLAM [Xanax] Med 04/04/25 19:04 Discontinued 0.5 mg PO X1 ONE Vital Signs Vital signs: Vital Signs Temperature 97.8 F 04/04/25 15:01 Pulse Rate 71 04/04/25 15:01 Respiratory Rate 18 04/04/25 15:01 Blood Pressure 123/75 04/04/25 15:01 Pulse Oximetry (%) 97 04/04/25 15:01 Oxygen Delivery Method Room Air 04/04/25 15:01 Anxiety [facility] Narrative [facility] Narrative: This section includes all my notes and documentations, including HPI, PE, and ED course. Mandeep Capps MD HPI: 44-year-old female here with anxiety and restlessness. Reports intermittent symptoms for weeks. Other symptoms can include intense fear, pounding and racing heart, sweating, chills, shaking, trouble breathing, stomach pain, nausea, numbness and tingling in the hands and feet and face, confusion, hot flashes, and feeling faint. No other complaints. ROS: All negative except as documented in HPI. Physical Exam: General: Alert and oriented. No acute distress when remaining still. Eyes: Conjunctivae and lids clear. PERRL. EOMI. ENT: No nasal congestion. Neck: Supple. No carotid bruit. No JVD. Heart: RRR. Lungs: No respiratory distress. Good air movement. No rhonchi, wheezing, rales. Abdomen: Soft and nontender. Normal bowel sounds. No distension. No rebound or guarding. Back: No CVA tenderness. Skin: Warm and dry. Neuro: Alert and oriented X 3. Cranial nerves II to XII grossly normal. No peripheral motor deficits. I reviewed all diagnostic test results. Blood tests stable. At this point, diagnoses include: Anxiety. Treatment here included Xanax 0.5 mg Significant improvement noted. Recommend outpatient management. Based on my best medical judgment, made decision no further evaluation or treatment indicated at this time. Patient understands and agrees to the discharge instructions customized and printed, see below. Discharge Instructions from Dr. Capps printed for you: 1. Your diagnostic tests today were stable. 2. Try Xanax as needed. Avoid taking it more than 2-3 times per week to avoid addiction. 3. Continue current care with your private doctors. 4. Seek immediate medical care with worsening or with any concerns. Mandeep Capps MD Patient data External records reviewed:: [facility] previous records (Reviewed prior ED records from 11/18/24. Patient was seen for Anemia in chronic kidney disease, on chronic dialysis.) Clinical information provided by:: patient Social determinants that could affect healthcare access:: none Patient has the following chronic illnesses:: Hypercholesterolemia, Hypertension, Obesity, Renal Disease and Dialysis, Cataracts, Blind, Retinal Detachment, Diabetes Mellitus Type 2, Anemia, Depression How is presenting disease/condition affected by chronic disease/condition?: exacerbated by Evaluation data The following diagnostics were reviewed and interpreted by me:: lab results Lab and/or radiology exams considered but not ordered:: None Interpretation Summary: I reviewed all diagnostic test results. Blood tests stable Medications / Prescriptions Medications or Prescriptions considered but not ordered:: None Medication administrations:: Medication Administration History Discontinued Medications Alprazolam (Alprazolam 0.25 Mg Tablet) 0.5 mg PO X1 ONE Stop: 04/04/25 19:05 Consultations Consultation(s) initiated? (list below): No Diagnosis Differential diagnosis anxiety: hyperventilation, panic disorder and acute anxiety Most likely diagnosis given after review of the tests above:: Anxiety Reaction Admission Indicated Admission indicated?: not indicated Explain why admission is indicated or not indicated:: With significant improvement and no condition needing emergent intervention, there was no indication for admission. Admission Request Was there a request for admission?: No Disposition Plan Disposition Plan: Discharge Discharge Attestation Discharge Attestation: The patient and all family members were given an opportunity to ask questions and understood the discharge instructions. Discharge instructions specifically effects, indications for sooner follow up or return to the emergency department, and the expected course of current diagnosis. Patient condition: Stable Discharge Plan Plan Patient Disposition: HOME (Self Care) Prescriptions/Referrals Prescriptions/Med Rec: New alprazolam [Xanax] 0.5 mg tablet 0.5 mg PO BID PRN (Reason: anxiety) Qty: 20 0RF No Action simvastatin 20 MG tablet 20 mg PO QDAY Qty: 30 nifedipine [Nifedipine ER] 60 MG tablet extended release 60 mg PO QDAY Qty: 30 insulin glargine [Basaglar KwikPen U-100 Insulin] 100 unit/mL (3 mL) Insulin Pen 20 unit SUB-Q BID Qty: 9 escitalopram oxalate 10 mg Tablet 10 mg PO QDAY calcium acetate(phosphat bind) 667 mg Capsule 2 tab PO TID hydralazine 25 mg Tablet 25 mg PO TID Qty: 90 0RF omeprazole 40 mg Capsule,Delayed Release(Dr/Ec) 40 mg PO QDAY carvedilol 25 mg Tablet 25 mg PO BID Rx Instructions: must administer with a meal/food gabapentin 300 mg Capsule 300 mg PO TID losartan 100 mg Tablet 100 mg PO QDAY Ozempic 2 mg/dose (8 mg/3 mL) Pen Injector 2 mg SUBCUT QWEEK amoxicillin-pot clavulanate 875-125 mg tablet 1 tab PO BID Qty: 10 0RF promethazine-DM 6.25-15 mg/5 mL syrup 5 ml PO Q6H PRN (Reason: cough) Qty: 118 0RF metoclopramide HCl [Reglan] 10 mg tablet 10 mg PO Q6H PRN (Reason: nausea and vomiting) Qty: 30 0RF Referrals: Luis Wilkerson MD [Primary Care Provider, Family Practice] - In 1 week Problem List Clinical Impression: Anxiety reaction Patient/Caregiver Discharge Instructions Discharge Activity: activity as tolerated Education Materials: ED Anxiety Reaction Additional Instructions: Discharge Instructions from Dr. Capps printed for you: 1. Your diagnostic tests today were stable. 2. Try Xanax as needed. Avoid taking it more than 2-3 times per week to avoid addiction. 3. Continue current care with your private doctors. 4. Seek immediate medical care with worsening or with any concerns. Print Language: Slovenian Stand Alone Forms: [employer] Info., Patient Portal Info Letter
== END 2025-04-04 20:14 | disposition home or self-care (01) ==
PROVIDERS: Nurse Practitioner Family; Emergency Provider Emergency Medicine; PCP Family Medicine
DX: F41.1 Generalized anxiety disorder (principal); N18.6 End stage renal disease; Z99.2 Dependence on renal dialysis
CPT/HCPCS: 36415; 80053; 81001; 81025; 83735; 85025; 99283; A9270